=== PATIENT | male | born 1985 | race Caucasian/White ===

== ENCOUNTER 2019-03-01 15:35 | Emergency (ER) | payer SELFPAY ==
[~2019-03-01] VITALS: Ht 162.6 cm; Wt 63.0 kg
[2019-03-01 15:53] VITALS: Ht 162.6 cm; Wt 63.0 kg
[2019-03-01 18:09] VITALS: BP 111/69
== END 2019-03-01 18:09 | disposition home or self-care (01) ==
LOC: ED 15:35
DX: S61.412A Laceration without foreign body of left hand, initial encounter (principal); W25.XXXA Contact with sharp glass, initial encounter; Y93.89 Activity, other specified; Y92.89 Other specified places as the place of occurrence of the external cause; Y99.8 Other external cause status
CPT/HCPCS: 90715; J2001